=== PATIENT | female | born 1935 | race Caucasian/White ===

== ENCOUNTER 2020-02-02 06:23 | Outpatient (CLI) | payer MEDICARE, BC, OTHER ==
[2020-02-02 10:28] LABS: #Lymphocytes 1.4 thou/uL (1.20-3.40); #Neutrophils 5.2 thou/uL (1.40-6.50); %Basophils 0.1 % (0.0-1.0); %Eosinophils 0.1 % (0.0-10.0); %Lymphocytes 21.2 % (21.0-51.0); %Monocytes 0.6 % (0.0-10.0); Hemoglobin 13.9 g/dL (12.0-16.0); Mean Corpuscular HGB CONC 33.4 g/dL (32.0-36.0); Mean Corpuscular Hemoglobin 31.3 pg (27.0-31.0); Mean Corpuscular Volume 93.8 fL (78.0-98.0); Mean Platelet Volume 9.2 fL (7.4-10.4); Platelet Count 259 thou/uL (130-400); RBC Distribution Width 12.8 % (11.5-14.5); Red Blood Cell (RBC) Count 4.43 mill/uL (4.20-5.40); White Blood Cell (WBC) Count 6.6 thou/uL (4.8-10.8)
[2020-02-02 10:50] LABS: Anion Gap 17 mmol/L (10-20); BUN (Urea Nitrogen) 19 mg/dL (9.8-20.1); Calc. Creatinine Clearance 0 mL/min (70-130); Calcium 9.5 mg/dL (7.8-10.44); Carbon Dioxide 20 mmol/L (23-31); Chloride 106 mmol/L (98-107); Estimated GFR-MDRD 66; Glucose 171 mg/dL (83-110); Potassium 4.3 mmol/L (3.5-5.1); Sodium 139 mmol/L (136-145)
[2020-02-02 16:30] LABS: SARS-CoV-2 MS2 Positive; SARS-CoV-2 N Gene Negative; SARS-CoV-2 S Gene Negative; SARS-CoV-2 by NAA Not Detected (NotDetected); SARS-CoV-2 orf1ab Negative
== END 2020-02-02 06:24 | disposition home or self-care (01) ==
LOC: LABBT 06:23
PROVIDERS: ATTEND Surgery
DX: Z01.812 Encounter for preprocedural laboratory examination (principal); K44.9 Diaphragmatic hernia without obstruction or gangrene; Z20.828 Contact with and (suspected) exposure to other viral communicable diseases
CPT/HCPCS: 80048; 85025; U0003; 87635; 93005; 93010

== ENCOUNTER 2020-03-18 06:11 | Outpatient (CLI) | payer MEDICARE, BC ==
[2020-03-18 09:40] LABS: #Neutrophils 2.3 10x3/uL (1.5-8.4)
[2020-03-18 09:41] LABS: #Basophils 0.1 10x3/uL (0.0-0.2); #Eosinphils 0.4 10x3/uL (0.0-0.5); #Monocytes 0.5 10x3/uL (0.0-1.1); %Basophils 0.9 % (0.0-2.0); %Eosinophils 6.6 % (0.0-6.0); %Lymphocytes 40.1 % (18.0-47.0); %Monocytes 9.4 % (0.0-10.0); Hemoglobin 12.8 g/dL (12.0-16.0); Mean Corpuscular HGB CONC 33.2 G/DL (32.0-36.0); Mean Corpuscular Hemoglobin 30.3 PG (27.0-33.0); Mean Corpuscular Volume 91.5 fl (80.0-100.0); Mean Platelet Volume 11.9 fl (7.4-10.4); Platelet Count 222 10x3/uL (130-400); RBC Distribution Width 14.6 % (11.5-14.5); Red Blood Cell (RBC) Count 4.22 10x6/uL (3.90-5.20); White Blood Cell (WBC) Count 5.3 10x3/uL (4.5-11.0)
[2020-03-18 09:54] LABS: Anion Gap 13 mmol/L (10-20); BUN (Urea Nitrogen) 13 mg/dL (9.8-20.1); Calc. Creatinine Clearance 0 mL/min (70-130); Calcium 9.1 mg/dL (7.8-10.44); Carbon Dioxide 29 mmol/L (23-31); Chloride 104 mmol/L (98-107); Glucose 98 mg/dL (83-110); Potassium 3.8 mmol/L (3.5-5.1); Sodium 142 mmol/L (136-145)
[2020-03-18 18:04] LABS: SARS-CoV-2 MS2 Positive; SARS-CoV-2 N Gene Negative; SARS-CoV-2 S Gene Negative; SARS-CoV-2 by NAA Not Detected (NotDetected); SARS-CoV-2 orf1ab Negative
== END 2020-03-18 06:12 | disposition home or self-care (01) ==
LOC: LABBT 06:11
PROVIDERS: ATTEND Surgery
DX: Z01.818 Encounter for other preprocedural examination (principal); Z20.828 Contact with and (suspected) exposure to other viral communicable diseases; K44.9 Diaphragmatic hernia without obstruction or gangrene
CPT/HCPCS: 80048; 85025; 93005; U0003; 87635; 93010

== ENCOUNTER 2020-03-21 06:48 | Observation (INO) | payer MEDICARE, BC ==
[2020-03-20 17:24] VITALS: BMI 29.9
[2020-03-21] MEDS ORDERED: Bupivacaine 0.25% HCL 30 ML VIAL ONE (08:20)
[2020-03-21] MEDS ORDERED: Lidocaine 0.5%/Epinephrine 1:200,000 50 ml Vial ONE (08:20)
[2020-03-21] MEDS ORDERED: Lidocaine 1% w/Epinephrine 1:100K 20 ML VIAL ONE (08:21)
[2020-03-21] MEDS ORDERED: Fentanyl 100 MCG/2 ML VIAL ONE ×3 (08:43→12:46)
[2020-03-21] MEDS ORDERED: SUGAMMADEX SODIUM 200 MG/2 ML VIAL ONE (08:44)
[2020-03-21] MEDS ORDERED: Promethazine HCl 25 MG/ML VIAL IM PRN ×2 (10:35→13:48)
[2020-03-21] MEDS ORDERED: Ondansetron HCl/PF 4 MG/2 ML Vial IVP PRN (10:35)
[2020-03-21] MEDS ORDERED: Promethazine HCl 25 MG/ML VIAL SLOW IVP PRN (10:35)
[2020-03-21] MEDS ORDERED: ePHEDrine 50 MG/ML VIAL ONE (11:38)
[2020-03-21] MEDS ORDERED: Lidocaine 1% PF 5 ML VIAL ONE (11:38)
[2020-03-21] MEDS ORDERED: PHENYLEPHRINE-NS 100 MCG/ML 10 ML SYRINGE ONE (11:38)
[2020-03-21] MEDS ORDERED: Esmolol 100 MG/10 ML VIAL ONE (11:38)
[2020-03-21] MEDS ORDERED: PROPOFOL 200 MG/20 ML VIAL ONE (11:38)
[2020-03-21] MEDS ORDERED: Glycopyrrolate 0.2 MG/ML 5 ML SYRINGE ONE (11:38)
[2020-03-21] MEDS ORDERED: Rocuronium Bromide 10 MG/ML (10ML VIAL) ONE (11:38)
[2020-03-21] MEDS ORDERED: Ondansetron PF 4 MG/2 ML Vial ONE (11:50)
[2020-03-21] MEDS ORDERED: hydrALAZINE 20 MG/ML VIAL SLOW IVP PRN (13:48)
[2020-03-21] MEDS ORDERED: traMADol HCl 50 MG TAB PO PRN (13:48)
[2020-03-21] MEDS ORDERED: Dextrose 5% in Water 1,000 ML IV PRN (13:48)
[2020-03-21] MEDS ORDERED: Dextrose 50% Abboject 50 ML SYRINGE SLOW IVP PRN (13:48)
[2020-03-21] MEDS ORDERED: Morphine 4 MG/ML VIAL SLOW IVP PRN (13:48)
[2020-03-21] MEDS ORDERED: Morphine 2 MG/ML VIAL SLOW IVP PRN (13:48)
[2020-03-21] MEDS ORDERED: Ondansetron PF 4 MG/2 ML Vial IVP PRN (13:48)
[2020-03-21] MEDS ORDERED: Pantoprazole 40 MG VIAL IVP SCH (14:00)
[2020-03-21] MEDS ORDERED: Sodium Chloride 0.9% (PF) 10 ML VIAL FS PRN (14:00)
[2020-03-21] MEDS ORDERED: D5 1/2 NS w/20 mEq KCL 1,000 ML ONE (16:45)
[2020-03-21] MEDS: D5 1/2 NS w/20 mEq KCL 1,000 ML IV SCH (17:20)
[2020-03-21] MEDS: Famotidine 20 MG TAB PO SCH (20:15)
[2020-03-21] MEDS: Famotidine/PF 20 mg/2ml Vial SLOW IVP SCH (20:15)
[2020-03-22] MEDS: D5 1/2 NS w/20 mEq KCL 1,000 ML IV SCH (05:54)
[2020-03-22] MEDS ORDERED: Levothyroxine Sodium 50 MCG TAB PO SCH (06:00)
[2020-03-22 08:40] VITALS: BP 169/74; TEMP 98.1
[2020-03-22] MEDS ORDERED: Pantoprazole 40 MG VIAL IVP SCH (09:00)
[2020-03-22] MEDS ORDERED: Amlodipine 5 MG TAB PO SCH (09:00)
[2020-03-22] MEDS: Famotidine/PF 20 mg/2ml Vial SLOW IVP SCH (09:01)
[2020-03-22] MEDS: Famotidine 20 MG TAB PO SCH (09:01)
--- NOTE | 2020-03-22 10:08 | DIS ---
DATE OF ADMISSION: 03/21/2020 DATE OF DISCHARGE: 03/22/2020 ADMIT DIAGNOSIS: Hiatal hernia. DISCHARGE DIAGNOSIS: Hiatal hernia. PROCEDURE PERFORMED: Laparoscopic hiatal hernia repair with mesh by Dr. Iqbal. CONDITION ON DISCHARGE: Improved. STAFF: Dr. Iqbal. HOSPITAL COURSE: On postop day 1, the patient is doing well. She is tolerating liquids. She is ambulatory. She will be discharged home. She will follow up with me in 2 weeks. Job ID: [id number]
--- NOTE | 2020-03-22 18:45 | OP ---
DATE OF PROCEDURE: 03/21/2020 PREOPERATIVE DIAGNOSIS: Paraesophageal hiatal hernia. POSTOPERATIVE DIAGNOSIS: Paraesophageal hiatal hernia. PROCEDURE PERFORMED: Laparoscopic paraesophageal hiatal hernia repair with fundoplication and mesh (Strattice). ANESTHESIA: General. ESTIMATED BLOOD LOSS: Minimal. COMPLICATIONS: None. SPECIMEN: None. FINDINGS: Normal postoperative EGD. DESCRIPTION OF PROCEDURE: The patient was taken to the operating room and laid supine on the operating room table. After general anesthetic was obtained, her arms and legs were affixed to the bariatric table. The legs were split. The abdomen was prepped and draped in a sterile fashion. OG tube had been used to decompress the stomach. Left subcostal 5-mm Optiview trocar was placed in usual fashion without injury, and high-flow pneumoperitoneum was obtained. A 5-mm camera port was placed above the umbilicus. Right and left abdominal 5 mm ports were placed. An additional 5 mm port was placed to the right of the xiphoid. The original left subcostal incision was switched out to an 8 mm port. The patient was placed in reverse Trendelenburg position. The short gastrics were taken down from the upper fundus of the stomach. The mediastinum was entered along the left doron. Anterior dissection was performed using LigaSure. The gastrohepatic ligament was opened, and the right-sided dissection was then performed up into the mediastinum. The right and left doron could be seen posteriorly. All attachments into the mediastinum were taken down. Care was taken to avoid injury to the esophagus or the vagus nerves. A circumferential dissection of the esophagus was performed high up into the chest. The GE junction was able to be brought back down into the abdominal cavity under no tension. OG tube was removed, and a 44 bougie was brought in its tip left in the mid stomach. Posterior crura were closed using three interrupted Ethibond sutures in the Ti-KNOT system. 5 x 3 cm Strattice mesh was brought into the sterile field, soaked for 2 minutes, placed into the abdominal cavity and sutured to the posterior repair. The fundus was then able to be brought posterior to the GE junction from the patient's left to the right. This was grasped and brought up anterior to the GE junction, where it was sewn to the residual fundus from the other side. Before this was performed, the fundus was found to not be twisted. There was no tension on it. First suture incorporated the small amount of the esophagus at the GE junction. Three sutures were used to form the wrap. The wrap was floppy, not too tight. Tisseel and the Tisseel mat were then used to glue the mesh to the posterior repair. Bougie was removed, and an EGD scope was passed in the esophagus and stomach to the level of duodenum without obstruction. It was withdrawn in the stomach to reveal no significant stenosis at the wrapped location or at the esophageal hiatus or at the diaphragmatic hiatus. EGD scope was used to decompress the stomach, it was pulled and removed. All port sites were infiltrated using local anesthetic. All ports were removed under direct visualization without bleeding. Pneumoperitoneum was let down. 4-0 Monocryl and Dermabond were used to close all skin incisions. The patient was sent to Recovery in stable condition. All instrument counts, needle counts, and lap counts were correct. Job ID: [id number]
== END 2020-03-22 10:50 | disposition home or self-care (01) ==
LOC: SDC 06:48 → SURG B 16:56
PROVIDERS: ADMIT Surgery; ATTEND Surgery
PROC: 0DV44ZZ Restriction of Esophagogastric Junction, Percutaneous Endoscopic Approach (ICD-10-PCS; principal; 2020-03-21)
DX: K44.9 Diaphragmatic hernia without obstruction or gangrene (principal); E78.5 Hyperlipidemia, unspecified; I10 Essential (primary) hypertension; E03.9 Hypothyroidism, unspecified; Z79.82 Long term (current) use of aspirin; Z79.899 Other long term (current) drug therapy; Z88.1 Allergy status to other antibiotic agents; Z88.2 Allergy status to sulfonamides; Z88.5 Allergy status to narcotic agent; Z88.6 Allergy status to analgesic agent; Z88.8 Allergy status to other drugs, medicaments and biological substances
CPT/HCPCS: 43280; 96374; G0378 ×2; Q4130; C9113; J0690; J2001; J2405; J2704; J3010; J3480; J3490; S0020

== ENCOUNTER 2020-05-11 21:58 | Inpatient (IN) | payer MEDICARE, BC ==
[~2020-05-11 21:58] MED LIST: Iopamidol-370 76% 500 ML 1 ML ONE
[2020-05-11] MEDS ORDERED: Ondansetron PF 4 MG/2 ML Vial ONE (22:12)
[2020-05-11 22:31] LABS: #Lymphocytes 1.3 thou/uL (1.20-3.40); #Monocytes 0.8 thou/uL (0.11-0.59); #Neutrophils 8.5 thou/uL (1.40-6.50); %Basophils 0.4 % (0.0-1.0); %Eosinophils 0.1 % (0.0-10.0); %Lymphocytes 12.5 % (21.0-51.0); %Monocytes 7.6 % (0.0-10.0); %Neutrophils 79.5 % (42.0-75.0); Hemoglobin 13.3 g/dL (12.0-16.0); Mean Corpuscular HGB CONC 33.2 g/dL (32.0-36.0); Mean Corpuscular Volume 93.2 fL (78.0-98.0); Mean Platelet Volume 10.5 fL (7.4-10.4); Platelet Count 186 thou/uL (130-400); RBC Distribution Width 13.8 % (11.5-14.5); Red Blood Cell (RBC) Count 4.28 mill/uL (4.20-5.40); White Blood Cell (WBC) Count 10.7 thou/uL (4.8-10.8)
[2020-05-11] MEDS ORDERED: Morphine 4 MG/ML VIAL ONE (22:47)
[2020-05-11 22:52] LABS: ALT (SGPT) 17 U/L (8-55); AST (SGOT) 19 U/L (5-34); Alkaline Phosphatase 77 U/L (40-110); Anion Gap 15 mmol/L (10-20); BUN (Urea Nitrogen) 25 mg/dL (9.8-20.1); Bilirubin, Total 0.9 mg/dL (0.2-1.2); Calc. Creatinine Clearance 0 mL/min (70-130); Calcium 8.5 mg/dL (7.8-10.44); Carbon Dioxide 24 mmol/L (23-31); Chloride 106 mmol/L (98-107); Globulin 2.7 g/dL (2.4-3.5); Glucose 118 mg/dL (83-110); Potassium 3.7 mmol/L (3.5-5.1); Protein, Total 6.7 g/dL (5.8-8.1); Sodium 141 mmol/L (136-145)
[2020-05-12] MEDS ORDERED: Ondansetron ODT 4 MG TAB SL PRN (00:45)
[2020-05-12] MEDS ORDERED: Ondansetron PF 4 MG/2 ML Vial IVP PRN ×2 (00:45→16:20)
[2020-05-12] MEDS ORDERED: Sodium Chloride 0.9% 1,000 ML IV SCH (00:45)
[2020-05-12 01:21] VITALS: BMI 28.0
[2020-05-12] MEDS: Morphine 4 MG/ML VIAL SLOW IVP PRN ×2 (02:16→09:17)
[2020-05-12] MEDS ORDERED: Pantoprazole 40 MG VIAL IVP SCH (09:00)
[2020-05-12] MEDS ORDERED: Dexamethasone 20 MG/5 ML VIAL ONE (09:15)
[2020-05-12] MEDS ORDERED: PROPOFOL 200 MG/20 ML VIAL ONE (09:15)
[2020-05-12] MEDS ORDERED: Rocuronium Bromide 10 MG/ML (10ML VIAL) ONE (09:15)
[2020-05-12] MEDS ORDERED: Ketorolac Tromethamine 30 MG/ML VIAL ONE (09:15)
[2020-05-12] MEDS ORDERED: Ondansetron PF 4 MG/2 ML Vial ONE ×2 (09:15→15:34)
[2020-05-12] MEDS ORDERED: Succinylcholine 200 MG/10 ml SYRINGE FS ONE (09:15)
[2020-05-12] MEDS ORDERED: hydrALAZINE 20 MG/ML VIAL ONE (13:11)
[2020-05-12] MEDS ORDERED: Fentanyl 100 MCG/2 ML VIAL ONE ×3 (13:30→15:25)
[2020-05-12] MEDS ORDERED: Bupivacaine 0.25% HCL 30 ML VIAL ONE (13:32)
[2020-05-12] MEDS ORDERED: XYLOCAINE 2%-EPI 1:100,000 20 ML VIAL ONE (13:32)
[2020-05-12] MEDS ORDERED: Morphine 4 MG/ML VIAL ONE (13:47)
[2020-05-12] MEDS ORDERED: SUGAMMADEX SODIUM 200 MG/2 ML VIAL ONE (14:41)
[2020-05-12] MEDS ORDERED: Ondansetron HCl/PF 4 MG/2 ML Vial IVP PRN (15:00)
[2020-05-12] MEDS ORDERED: hydrALAZINE 20 MG/ML VIAL SLOW IVP PRN (16:20)
[2020-05-12] MEDS ORDERED: Dextrose 5% in Water 1,000 ML IV PRN (16:20)
[2020-05-12] MEDS ORDERED: Morphine 2 MG/ML VIAL SLOW IVP PRN (16:20)
[2020-05-12] MEDS ORDERED: traMADol HCl 50 MG TAB PO PRN (16:20)
[2020-05-12] MEDS ORDERED: Dextrose 50% Abboject 50 ML SYRINGE SLOW IVP PRN (16:20)
[2020-05-12] MEDS ORDERED: Promethazine HCl 25 MG/ML VIAL IM PRN (16:20)
[2020-05-12] MEDS ORDERED: HYDROcodone/Acetaminophen 7.5/325 mg Tablet PO PRN (16:20)
[2020-05-12] MEDS ORDERED: Morphine 4 MG/ML VIAL SLOW IVP PRN (16:20)
[2020-05-12] MEDS ORDERED: Morphine 4 MG/ML VIAL SLOW IVP SCH (16:30)
[2020-05-12] MEDS: Sodium Chloride 0.9% 1,000 ML IV SCH ×2 (16:31→20:10)
[2020-05-12] MEDS: Famotidine 20 MG TAB PO SCH (20:06)
[2020-05-12] MEDS: Famotidine/PF 20 mg/2ml Vial SLOW IVP SCH (20:10)
[2020-05-13] MEDS: Famotidine/PF 20 mg/2ml Vial SLOW IVP SCH (08:17)
[2020-05-13] MEDS ORDERED: Amlodipine 5 MG TAB PO SCH (09:00)
[2020-05-13] MEDS: Famotidine 20 MG TAB PO SCH (09:26)
[2020-05-13 12:07] VITALS: BP 181/52; TEMP 97.9
== END 2020-05-13 12:20 | disposition home or self-care (01) | DRG 909 ==
LOC: ERS 21:58 → T4-B 23:23
PROVIDERS: ADMIT Surgery; ATTEND Surgery
PROC: 0DV44ZZ Restriction of Esophagogastric Junction, Percutaneous Endoscopic Approach (ICD-10-PCS; principal; 2020-05-12)
PROC: 0DJ08ZZ Inspection of Upper Intestinal Tract, Via Natural or Artificial Opening Endoscopic (ICD-10-PCS; 2020-05-12)
DX: T85.521A Displacement of esophageal anti-reflux device, initial encounter (principal); Z20.822 Contact with and (suspected) exposure to COVID-19; K21.9 Gastro-esophageal reflux disease without esophagitis; E78.5 Hyperlipidemia, unspecified; E78.00 Pure hypercholesterolemia, unspecified; I10 Essential (primary) hypertension; I48.91 Unspecified atrial fibrillation; K44.9 Diaphragmatic hernia without obstruction or gangrene; Y83.1 Surgical operation with implant of artificial internal device as the cause of abnormal reaction of the patient, or of later complication, without mention of misadventure at the time of the procedure; E03.9 Hypothyroidism, unspecified; R13.10 Dysphagia, unspecified; Z79.899 Other long term (current) drug therapy; Z79.890 Hormone replacement therapy; Z79.82 Long term (current) use of aspirin; Z88.2 Allergy status to sulfonamides; Z88.8 Allergy status to other drugs, medicaments and biological substances
CPT/HCPCS: 71260; 74177; 80053; 85025; 93005; 96374; 96375; 96376; J0360; J1100; J1610; J1885; J2270; J2405; J2704; J3010; Q9967; S0020; S0028; U0002

== ENCOUNTER 2021-04-21 15:22 | Outpatient (CLI) | payer MEDICARE, BC | END 2021-04-21 15:23 | disposition home or self-care (01) | LOC: SCSRAD 15:22 | PROVIDERS: ATTEND Family Medicine Sports Medicine | DX: M25.552 Pain in left hip (principal); M79.672 Pain in left foot; M79.89 Other specified soft tissue disorders ==

== ENCOUNTER 2022-02-03 08:26 | Observation (INO) | payer MEDICARE, BC ==
[2022-02-02 13:56] VITALS: BMI 30.4
[2022-02-03] MEDS ORDERED: Sodium Chloride 0.9% 100 ML ONE ×2 (08:32→11:14)
[2022-02-03] MEDS ORDERED: Tranexamic Acid 1,000 MG/10 ML VIAL ONE ×2 (08:32→12:58)
[2022-02-03] MEDS ORDERED: Vancomycin 1 GM/200 ML BAG ONE (08:32)
[2022-02-03] MEDS ORDERED: fentaNYL Citrate/PF 100 MCG/2 ML SYRINGE ONE ×3 (09:56→12:16)
[2022-02-03] MEDS ORDERED: Ropivacaine 0.5% HCl/PF (150 MG/30 ML VIAL) ONE (09:56)
[2022-02-03] MEDS ORDERED: Midazolam HCl 2 mg/2 ml Vial ONE (09:56)
[2022-02-03 10:52] LABS: SARS-CoV-2 NAA Rapid Test Not Detected (NotDetected)
[2022-02-03] MEDS ORDERED: Fentanyl 100 MCG/2 ML VIAL IV PRN (11:04)
[2022-02-03] MEDS ORDERED: Acetaminophen 325 MG TAB PO PRN (11:05)
[2022-02-03] MEDS ORDERED: Ondansetron PF 4 MG/2 ML Vial IVP PRN ×2 (11:05→11:15)
[2022-02-03] MEDS ORDERED: Promethazine HCl 25 MG/ML VIAL IM PRN ×2 (11:05→11:15)
[2022-02-03] MEDS ORDERED: Zolpidem Tartrate 5 MG TAB PO PRN ×2 (11:05→11:15)
[2022-02-03] MEDS ORDERED: diphenhydrAMINE 25 MG CAP PO PRN (11:05)
[2022-02-03] MEDS ORDERED: Bupivacaine PF 0.5% 30 ML VIAL ONE (11:09)
[2022-02-03] MEDS ORDERED: CEFAZOLIN 2 GM VIAL ONE (11:14)
[2022-02-03] MEDS ORDERED: traMADol HCl 50 MG TAB PO PRN ×2 (11:15)
[2022-02-03] MEDS ORDERED: HYDROcodone/Acetaminophen 10/325 mg Tablet PO PRN ×2 (11:15)
[2022-02-03] MEDS ORDERED: Ropivacaine 0.2% 550 ML 550 ML NERVE BLCK SCH (11:15)
[2022-02-03] MEDS ORDERED: PROPOFOL 200 MG/20 ML VIAL ONE (11:33)
[2022-02-03] MEDS ORDERED: Dexamethasone 20 MG/5 ML VIAL ONE (11:33)
[2022-02-03] MEDS ORDERED: Ondansetron PF 4 MG/2 ML Vial ONE (11:33)
[2022-02-03] MEDS ORDERED: FENTANYL 50 MCG/ML VIAL 50 MCG/ML VIAL ONE ×4 (12:52→13:27)
[2022-02-03] MEDS ORDERED: Lidocaine 1% (PF) 30 ML VIAL ONE (13:55)
[2022-02-03] MEDS ORDERED: Ketorolac Tromethamine 30 MG/ML VIAL ONE (13:55)
[2022-02-03] MEDS ORDERED: Ketorolac Tromethamine 30 MG/ML VIAL IVP SCH (14:30)
[2022-02-03] MEDS: Sodium Chloride 0.9% 1,000 ML IV SCH ×2 (16:41→20:30)
[2022-02-03] MEDS: CEFAZOLIN 2 GM in Sodium Chloride 0.9% 100 ML IVPB SCH (20:22)
[2022-02-03] MEDS: Aspirin 81 mg Enteric Coated Tablet PO SCH (20:23)
[2022-02-03] MEDS: Ketorolac Tromethamine 30 MG/ML VIAL IVP SCH (20:23)
[2022-02-04] MEDS: CEFAZOLIN 2 GM in Sodium Chloride 0.9% 100 ML IVPB SCH (03:11)
[2022-02-04] MEDS: Ketorolac Tromethamine 30 MG/ML VIAL IVP SCH ×2 (03:12→09:25)
[2022-02-04] MEDS: Sodium Chloride 0.9% 1,000 ML IV SCH (05:19)
[2022-02-04 05:30] LABS: Hemoglobin 11.3 g/dL (12.0-16.0); Mean Corpuscular HGB CONC 32.2 g/dL (32.0-36.0); Mean Corpuscular Hemoglobin 31.5 pg (27.0-31.0); Mean Corpuscular Volume 97.6 fl (78.0-98.0); Mean Platelet Volume 9.1 fL (7.4-10.4); Platelet Count 176 thou/uL (130-400); Red Blood Cell (RBC) Count 3.59 mill/uL (4.20-5.40)
[2022-02-04] MEDS ORDERED: Levothyroxine Sodium 50 MCG TAB PO SCH (06:00)
[2022-02-04] MEDS ORDERED: Ferrous Gluconate 324 MG TAB PO SCH (08:00)
[2022-02-04 08:47] VITALS: BP 143/75; TEMP 97.8
[2022-02-04] MEDS ORDERED: Non-Formulary Item 1 EACH (Multivit-Min/Iron/Folic/Lutein [Centrum Silver Women] 1 TABLET PO SCH (09:00)
[2022-02-04] MEDS ORDERED: Atorvastatin Calcium 40 MG TAB PO SCH (09:00)
[2022-02-04] MEDS ORDERED: Magnesium Glycinate 100 MG Tablet PO SCH (09:00)
[2022-02-04] MEDS ORDERED: Senokot S 8.6-50 MG TAB PO SCH (09:00)
[2022-02-04] MEDS ORDERED: Amlodipine 5 MG TAB PO SCH (09:00)
[2022-02-04] MEDS ORDERED: Calcium Carbonate 500 MG TAB PO SCH (09:00)
[2022-02-04] MEDS ORDERED: Multivitamin W/ Minerals 1 TAB PO SCH (09:00)
[2022-02-04] MEDS: Aspirin 81 mg Enteric Coated Tablet PO SCH (09:28)
== END 2022-02-04 11:30 | disposition home or self-care (01) ==
LOC: SDC 08:26 → SJJU 16:17 → SDC 17:14
PROVIDERS: ADMIT Orthopaedic Surgery; ATTEND Orthopaedic Surgery
PROC: 0SRD0J9 Replacement of Left Knee Joint with Synthetic Substitute, Cemented, Open Approach (ICD-10-PCS; principal; 2022-02-03)
DX: M17.12 Unilateral primary osteoarthritis, left knee (principal); M71.22 Synovial cyst of popliteal space [Baker], left knee; E78.5 Hyperlipidemia, unspecified; I10 Essential (primary) hypertension; E03.9 Hypothyroidism, unspecified; Z79.82 Long term (current) use of aspirin; Z79.890 Hormone replacement therapy; Z79.899 Other long term (current) drug therapy; Z88.2 Allergy status to sulfonamides; Z88.5 Allergy status to narcotic agent; Z88.6 Allergy status to analgesic agent; Z88.8 Allergy status to other drugs, medicaments and biological substances; Z20.822 Contact with and (suspected) exposure to COVID-19
CPT/HCPCS: 20985; 27447; 73560; 85027; 97110 ×2; 97116 ×2; 97530; A4306; C1713; C1776; U0002; 36415; 96374; 96375; 96376; G0378; J1100; J1885; J2001; J2250; J2405; J2704; J2795; J3370; J3490; J7050; S0020

== ENCOUNTER 2024-11-29 13:58 | Outpatient (CLI) | payer MEDICARE | END 2024-11-29 13:59 | disposition home or self-care (01) | LOC: SCSRAD 13:58 | PROVIDERS: ATTEND Family Medicine Sports Medicine | DX: R06.00 Dyspnea, unspecified (principal) | CPT/HCPCS: 36415; 71046; 80053; 80061; 81001; 83036; 84443; 85025 ==